=== PATIENT | female | born 2000 ===

== ENCOUNTER 2020-09-03 14:57 | Emergency (ER) | payer OTHER ==
[~2020-09-03] VITALS: Ht 157.5 cm; Wt 63.6 kg
[2020-09-03 15:14] VITALS: BP 119/72; TEMP 98.3
[2020-09-03] MEDS ORDERED: VIENVA-28 TABL1 EACH PO (15:17)
[2020-09-03] MEDS ORDERED: PRILOTC PO (15:17)
[2020-09-03 16:31] VITALS: PULSE 91
== END 2020-09-03 16:31 | disposition home or self-care (01) ==
LOC: COL.ER 14:57
DX: Z20.2 Contact with and (suspected) exposure to infections with a predominantly sexual mode of transmission (principal)
CPT/HCPCS: J0696

== ENCOUNTER 2020-11-12 16:22 | Emergency (ER) | payer OTHER ==
[~2020-11-12] VITALS: Ht 157.5 cm; Wt 63.6 kg
[~2020-11-12 16:22] MED LIST: PRILOTC PO; VIENVA-28 TABL1 EACH PO
[2020-11-12 16:35] VITALS: TEMP 98.7
[2020-11-12 19:11] LABS: STREP SCREEN POSITIVE
[2020-11-12] MEDS ORDERED: AMOXICILLIN875 MG PO (19:27)
[2020-11-12 19:45] VITALS: BP 125/74; PULSE 83
== END 2020-11-12 19:45 | disposition home or self-care (01) ==
LOC: COL.ER 16:22
PROVIDERS: Nurse Practitioner Primary Care
DX: J02.0 Streptococcal pharyngitis (principal)

== ENCOUNTER 2021-04-11 21:16 | Emergency (ER) | payer BC ==
[~2021-04-11] VITALS: Ht 157.5 cm; Wt 65.9 kg
[~2021-04-11 21:16] MED LIST changes: +AMOXICILLIN875 MG PO
[2021-04-11 21:44] VITALS: TEMP 98.5
[2021-04-11] MEDS ORDERED: AMOXICILLIN 50500 MG PO (23:31)
[2021-04-12 00:03] VITALS: BP 121/71; PULSE 99
== END 2021-04-12 00:08 | disposition home or self-care (01) ==
LOC: COL.ER 21:16
DX: J01.90 Acute sinusitis, unspecified (principal); Z20.822 Contact with and (suspected) exposure to COVID-19